=== PATIENT | male | born 1950 | race Caucasian/White ===

== ENCOUNTER 2020-02-23 23:26 | Inpatient (IN) | payer OTHER ==
[~2020-02-23] VITALS: Ht 182.9 cm; Wt 113.4 kg
--- NOTE | 2020-02-23 23:30 | NUR ---
ED Nurse Note: Patient brought in by ambulance from home d/t bilateral leg pain, per pt hx of cellulitis. Patient aao x 4 and nonambulatory d/t pain. Pain 09/03. Redness noted on bilateral legs. Patient placed on monitor technician. No acute distress noted. Addendum: 02/24/20 at 0118 by [facility] ED Nurse Note: Patient brought in by ambulance from home d/t bilateral leg pain, per pt hx of cellulitis. Patient aao x 4 and nonambulatory d/t pain, normally ambulatory with walker at home. Pain 09/03. Redness noted on bilateral legs. Patient placed on monitor technician. No acute distress noted.
[2020-02-23] MEDS ORDERED: Acetaminophen 500mg (ES) tab ORAL ONE (23:45)
[2020-02-23] MEDS ORDERED: HYDROmorphone 1mg/ml Carpuject IVP ONE (23:45)
[2020-02-23] MEDS ORDERED: Vancomycin 1.5 GM in NS 275 ML IVPB ONE (23:45)
--- NOTE | 2020-02-23 23:49 | Emergency Room Report ---
History of Present Illness General Chief Complaint: Lower Extremity Injury Source: Patient Present Illness HPI 69-year-old male presents ED for evaluation of bilateral leg pain and swelling. Coming from home. States he has cellulitis in his legs. Pain started today. Febrile in triage. Denies cough. Denies congestion or shortness of breath. States he has had prior cellulitis episodes many times. Denies chest pain or shortness of breath. No other aggravating relieving factors. Denies any other associated symptoms Allergies: Coded Allergies: No Known Allergies (Unverified , 02/23/20) COVID-19 Screening Contact w/high risk pt: No Recent Travel to affected area: No Experienced COVID-19 symptoms?: No COVID-19 symptoms experienced: Fever (T>100.4F or >38C) Patient History Past Medical History: DM, HTN, COPD Past Surgical History: none Pertinent Family History: none Social History: Denies: smoking, alcohol use, drug use Immunizations: UTD Reviewed Nursing Documentation: PMH: Agreed; PSxH: Agreed Nursing Documentation-PMH Hx Cardiac Problems: Yes - PE; DVT; 3 STENTS Hx Hypertension: Yes Hx COPD: Yes Hx Diabetes: Yes Review of Systems All Other Systems: negative except mentioned in HPI Physical Exam Vital Signs Date Time Temp Pulse Resp B/P (MAP) Pulse Ox O2 Delivery O2 Flow Rate FiO2 02/23/20 23:24 102.4 102 20 144/85 (104) 98 Room Air Sp02 EP Interpretation: reviewed, normal General Appearance: no apparent distress, alert, GCS 15, non-toxic, obese Head: normocephalic, atraumatic Eyes: bilateral eye normal inspection, bilateral eye PERRL ENT: hearing grossly normal, normal pharynx, no angioedema, normal voice Neck: full range of motion, supple/symm/no masses Respiratory: chest non-tender, lungs clear, normal breath sounds, speaking full sentences Cardiovascular #1: regular rate, rhythm, no edema Cardiovascular #2: 2+ carotid (R), 2+ carotid (L), 2+ radial (R), 2+ radial (L) , 2+ dorsalis pedis (R), 2+ dorsalis pedis (L) Gastrointestinal: normal bowel sounds, non tender, soft, non-distended, no guarding, no rebound Rectal: deferred Genitourinary: normal inspection, no CVA tenderness Musculoskeletal: back normal, normal range of motion, gait/station normal, swelling - erythema/swelling bilateral LEs Neurologic: alert, motor strength/tone normal, oriented x3, sensory intact, responsive, speech normal Psychiatric: judgement/insight normal, memory normal, mood/affect normal, no suicidal/homicidal ideation Reflexes: 3+ bicep (R), 3+ bicep (L), 3+ tricep (R), 3+ tricep (L), 3+ knee (R) , 3+ knee (L) Skin: other - erythema/induration bilateral LEs Lymphatic: no adenopathy Medical Decision Making Diagnostic Impression: Primary Impression: Cellulitis of both lower extremities ER Course Hospital Course 69-year-old male presents to ED with redness, pain to lower extremities. fever Differential diagnoses include: Cellulitis, DVT, abscess, rash. Clinical course Patient placed on stretcher. After initial history and physical I ordered labs , blood Cx, UA, IVFs, CXR, pain meds, doppler US of LLE labs reviewed - minimal leukocytosis, Hb/Hct stable, no electrolyte abnormalities. lactic ok Doppler US - no evidence of DVT CXR - no focal consolidation patient has no cough. no SOB. given tylenol for fever. antibiotics given. Case discussed with Dr Mock and he agreed to accept the patient to his service for further care and support Diagnosis - cellulitis of both lower extremities Patient admitted to floor in serious condition Labs Test 02/23/20 23:48 White Blood Count 11.6 K/UL (4.8-10.8) Red Blood Count 4.75 M/UL (4.70-6.10) Hemoglobin 10.9 G/DL (14.2-18.0) Hematocrit 35.1 % (42.0-52.0) Mean Corpuscular Volume 74 FL (80-99) Mean Corpuscular Hemoglobin 22.9 PG (27.0-31.0) Mean Corpuscular Hemoglobin Concent 31.0 G/DL (32.0-36.0) Red Cell Distribution Width 14.9 % (11.6-14.8) Platelet Count 249 K/UL (150-450) Mean Platelet Volume 6.6 FL (6.5-10.1) Neutrophils (%) (Auto) % (45.0-75.0) Lymphocytes (%) (Auto) % (20.0-45.0) Monocytes (%) (Auto) % (1.0-10.0) Eosinophils (%) (Auto) % (0.0-3.0) Basophils (%) (Auto) % (0.0-2.0) Sodium Level 136 MMOL/L (136-145) Potassium Level 4.2 MMOL/L (3.5-5.1) Chloride Level 101 MMOL/L (98-107) Carbon Dioxide Level 27 MMOL/L (21-32) Anion Gap 8 mmol/L (5-15) Blood Urea Nitrogen 19 mg/dL (7-18) Creatinine 1.0 MG/DL (0.55-1.30) Estimat Glomerular Filtration Rate > 60 mL/min (>60) Glucose Level 151 MG/DL (74-106) Lactic Acid Level 1.70 mmol/L (0.4-2.0) Calcium Level 9.1 MG/DL (8.5-10.1) Total Bilirubin 0.3 MG/DL (0.2-1.0) Aspartate Amino Transf (AST/SGOT) 18 U/L (15-37) Alanine Aminotransferase (ALT/SGPT) 30 U/L (12-78) Alkaline Phosphatase 118 U/L (46-116) Total Protein 7.4 G/DL (6.4-8.2) Albumin 3.3 G/DL (3.4-5.0) Globulin 4.1 g/dL Albumin/Globulin Ratio 0.8 (1.0-2.7) Chest X-Ray Diagnostic Results Chest X-Ray Diagnostic Results : Chest X-Ray Ordered: Yes # of Views/Limited/Complete: 1 View Indication: Other EP Interpretation: Yes Interpretation: no consolidation, no effusion, no pneumothorax, no acute cardiopulmonary disease Impression: No acute disease Electronically Signed by: Electronically signed by Elian Momin MD CT/MRI/US Diagnostic Results CT/MRI/US Diagnostic Results : Imaging Test Ordered: Venous Duplex bilateral lower extremities Impression no evidence of DVT in lower extremities Last Vital Signs Date Time Temp Pulse Resp B/P (MAP) Pulse Ox O2 Delivery O2 Flow Rate FiO2 02/23/20 23:24 102.4 102 20 144/85 (104) 98 Room Air Status: improved Disposition: ADMITTED INPATIENT Condition: Serious Referrals: [facility],REFERRING (PCP) Elian Momin MD Feb 23, 2020 23:49
[2020-02-24 00:04] LABS: HEMATOCRIT 35.1 % (42.0-52.0); HEMOGLOBIN 10.9 G/DL (14.2-18.0); MEAN CORPUSCULAR VOLUME 74 FL (80-99); PLATELET COUNT 249 K/UL (150-450); RED BLOOD COUNT 4.75 M/UL (4.70-6.10); RED CELL DISTRIBUTION WIDTH 14.9 % (11.6-14.8); WHITE BLOOD COUNT 11.6 K/UL (4.8-10.8)
--- NOTE | 2020-02-24 00:11 | NUR ---
ED Nurse Note: Xray at bedside
[2020-02-24 00:16] LABS: ALANINE AMINOTRANSFERASE 30 U/L (12-78); ALBUMIN 3.3 G/DL (3.4-5.0); ALBUMIN/GLOBULIN RATIO 0.8 (1.0-2.7); ALKALINE PHOSPHATASE 118 U/L (46-116); ANION GAP 8 mmol/L (5-15); ASPARTATE AMINO TRANSFERASE 18 U/L (15-37); BILIRUBIN,TOTAL 0.3 MG/DL (0.2-1.0); BLOOD UREA NITROGEN 19 mg/dL (7-18); CALCIUM 9.1 MG/DL (8.5-10.1); CARBON DIOXIDE 27 MMOL/L (21-32); CHLORIDE 101 MMOL/L (98-107); POTASSIUM 4.2 MMOL/L (3.5-5.1); SODIUM 136 MMOL/L (136-145)
--- NOTE | 2020-02-24 01:16 | NUR ---
ED Nurse Note: Provided patient with urinal, states unable to give urine sample at this time.
--- NOTE | 2020-02-24 01:24 | NUR ---
ED Nurse Note: Ultrasound at bedside.
[2020-02-24] MEDS ORDERED: LANTUS SOL100 UNIT/1 SUBQ (01:36)
[2020-02-24] MEDS ORDERED: METFORMIN HCL500 M1 ORAL (01:36)
[2020-02-24] MEDS ORDERED: VITAMIN C500 M1 ORAL (01:36)
[2020-02-24] MEDS ORDERED: BENAZEPRIL HCL10 MG ORAL (01:36)
[2020-02-24] MEDS ORDERED: XARELTO10 MG ORAL (01:36)
--- NOTE | 2020-02-24 02:12 | NUR ---
ED Nurse Note: Report given to MARTA Whittaker in med surg.
--- NOTE | 2020-02-24 02:16 | NUR ---
ED Nurse Note: Belongings list completed and signed. Patient unable to give urine sample.
--- NOTE | 2020-02-24 02:22 | NUR ---
TRANSFER TO FLOOR: Patient transferred to med surg as ordered, per ERMD. Report given to MARTA Whittaker. Patient transported via gurney in stable condition accompanied by technical sales manager in stable condition.
--- NOTE | 2020-02-24 02:42 | NUR ---
NURSE NOTES: Received patient in bed, admission from ED via gurney, patient is awake, alert, oriented x4, able to verbalize his needs, IV site is clean dry and intact, patient unable to stand on his feet due to pain and discomfort, oriented to the room, call light is within reach, be dis lowered, locked, alarm is on. Belongings list verified, items are accounted for. Will obtain admit orders from MD. Will continue to monitor for comfort and safety.
--- NOTE | 2020-02-24 03:09 | Diagnostic Imaging Report ---
Indication: Bilateral leg pain and swelling, history of cellulitis Technique: Grayscale and duplex images of the bilateral lower extremity veins Comparison: None Findings: Bilaterally, grayscale and duplex images demonstrate no evidence of intraluminal thrombus. Normal phasic Doppler waveforms, demonstrating normal augmentation response and no evidence of valvular insufficiency. Greater saphenous vein(s) and tibial veins are patent. Normal compressibility. Impression: Negative for evidence of lower extremity deep venous thrombosis bilaterally This agrees with the preliminary interpretation provided overnight by [facility] teleradiology service.
--- NOTE | 2020-02-24 03:13 | NUR ---
Called MD to obtain admit orders, left voice message.
[2020-02-24] MEDS ORDERED: HYDROmorphone 1mg/ml Carpuject IVP PRN ×2 (03:45→11:00)
[2020-02-24 04:00] VITALS: BP 124/64
[2020-02-24] MEDS: NovoLOG Insulin Flexpen SUBQ SCH ×4 (05:49→20:51)
[2020-02-24 06:43] LABS: BASOPHILS % (AUTO) 0.5 % (0.0-2.0); EOSINOPHILS % (AUTO) 0.1 % (0.0-3.0); HEMOGLOBIN 9.8 G/DL (14.2-18.0); MEAN CORPUSCULAR VOLUME 73 FL (80-99); MONOCYTES % (AUTO) 7.1 % (1.0-10.0); NEUTROPHILS % (AUTO) 84.4 % (45.0-75.0); PLATELET COUNT 225 K/UL (150-450); RED BLOOD COUNT 4.11 M/UL (4.70-6.10); WHITE BLOOD COUNT 11.4 K/UL (4.8-10.8)
[2020-02-24 07:01] LABS: ANION GAP 9 mmol/L (5-15); BLOOD UREA NITROGEN 17 mg/dL (7-18); CALCIUM 8.7 MG/DL (8.5-10.1); CARBON DIOXIDE 24 MMOL/L (21-32); CHLORIDE 103 MMOL/L (98-107); SODIUM 136 MMOL/L (136-145)
--- NOTE | 2020-02-24 07:45 | NUR ---
NURSE NOTES: Received patient on bed, awake. IV site intact and patent. Bed in low and locked position, call light in reach. No signs of rerspiratory distress or pain. patient states that he woke up with a cough that he did not have before. Will continue to monitor patient and temperature and notify MD. Room Board updated, will continue to monitor.
[2020-02-24 08:00] VITALS: BP 120/66
--- NOTE | 2020-02-24 08:55 | Diagnostic Imaging Report ---
Indication: Cough for 3 days Technique: One view of the chest Comparison: none Findings: The lungs and pleural spaces are clear. The heart size is upper limits of normal. Surgical hardware is seen in the right shoulder. Extensive degenerative changes of the left shoulder noted. There is final fusion hardware at the cervicothoracic junction. Numerous surgical clips are seen in the central and left lower neck. Impression: No acute process
[2020-02-24] MEDS: Ascorbic Acid 500mg tab ORAL SCH (09:07)
[2020-02-24] MEDS: Benazepril 10mg tab ORAL SCH (09:07)
[2020-02-24] MEDS: Xarelto 10mg tab ORAL SCH (09:07)
--- NOTE | 2020-02-24 10:10 | NUR ---
NURSE NOTES: Patient sat up in bed, did not ambulate.
[2020-02-24] MEDS ORDERED: Nitroglycerin Subl 0.4mg tab SL PRN (11:00)
[2020-02-24] MEDS ORDERED: Acetaminophen 500mg (ES) tab ORAL PRN (11:00)
[2020-02-24] MEDS ORDERED: Milk of Magnesia 30ml Ud ORAL PRN (11:00)
--- NOTE | 2020-02-24 11:04 | NUR ---
*-* INSURANCE *-* ALL AVAILABLE CLINICALS HAVE BEEN FAXED TO: Patricia CM: [place] #[phone]
[2020-02-24] MEDS: Vancomycin 1 GM in NS 275 ML IVPB SCH (11:41)
--- NOTE | 2020-02-24 12:05 | NUR ---
NURSE NOTES: Patient has fever 100.7. Left message for MD Mock, awaiting any new orders.
--- NOTE | 2020-02-24 12:06 | NUR ---
HAND-OFF: Report given to MARTA Lucas.
[2020-02-24 12:07] VITALS: BP 106/57
--- NOTE | 2020-02-24 12:15 | NUR ---
NURSE NOTES: Patient seen on rounds, AxOx4, calm, not in distress. PRN Dilaudid and Tylenol given by RN Jatin and will reassess pain and fever. PIV on left AC intact, with no signs of infiltration. Urine specimen collected and confirmed orders with lab. Bed is locked, siderails up x 3, call light within reach, advised to call nurse for assistance. Will continue to monitor.
[2020-02-24 12:56] LABS: APPEARANCE,URINE CLEAR; BILIRUBIN, URINE NEGATIVE (NEGATIVE); GLUCOSE, URINE (UA) NEGATIVE (NEGATIVE); KETONES,URINE NEGATIVE (NEGATIVE); LEUKOCYTE ESTERASE ,URINE 1+ (NEGATIVE); NITRITE,URINE NEGATIVE (NEGATIVE); PH,URINE 5 (4.5-8.0); PROTEIN,URINE 2+ (NEGATIVE); UROBILINOGEN,URINE 1 MG/DL (0.0-1.0)
[2020-02-24 12:57] LABS: COLOR,URINE YELLOW
--- NOTE | 2020-02-24 13:28 | NUR ---
CASE MANAGEMENT: INITIAL REVIEW 69YR OLD SHAUN SEYMOUR FROM HOME CC: BILATERAL LOWER EXTREMITY PAIN WITH SWELLING AND REDNESS SI: CELLULITIS . UTI 102.4 102 20 144/85 98% ON RA WBC 11.6 H/H 10.9/35.1 BUN 19 BG 151 [id number] IS:IV VANCOMYCIN X1 IVF NS BOLUS X1 IV DILAUDID X1 TYLENOL PO X1 CHEST X-RAY- NO ACUTE PROCESS VENOUS DUPLEX- NEGATIVE \: 4E MED SURG UNIT DCP: HOME WHEN STABLE CASE MANAGEMENT: REVIEW 02/24/20 SI: CELLULITIS . UTI 100.7 79 19 106/57 94% ON RA WBC 11.4 H/H 9.8/30 BG 154 IS:IV VANCOMYCIN BID IV DILAUDID Q4HR/PRN TYLENOL PO Q4HR/PRN \: 4E MED SURG UNIT DCP: HOME WHEN STABLE PLAN: URINE CX-PENDING CONTROL FEVERS ID CONSULT FOR SEPSIS
--- NOTE | 2020-02-24 13:51 | History & Physical ---
History and Physical History & Physicial DICT # [id number] Simon Mock MD Feb 24, 2020 13:51
--- NOTE | 2020-02-24 15:52 | Consultation ---
Consult Note Consult Note HPI: 69yo gentleman with PMH below presents from home with leg pain. Pt reports with one day of bilateral feet pain radiating up his leg. Reports fever, chills. Pt is not sure if there is swelling or redness because he does not look at his feet. Denies trauma but states that he has neuropathy so can't really feel. No sore throat, congestion, cough, sob, chest pain, abdominal pain, nausea , diarrhea, dysuria. No recent travel. No sick contacts. ID consulted for cellulitis. Pt state that the vancomycin is helping and pain is much better. Pt reports history of cellulitis a year ago. ROS: per HPI PMH/PSH: DM, HTN, COPD FHX: noncontributory SHx: chari cig, etoh, drug use. lives with and son. Vs: reviewed PE: Gen: NAD. well nourished. well hydrated HEENT: anicteric sclera. MMM. no cervical LAD CV: RRR. S1+S2. no rubs or gallop Resp: RRR. no wheezes or crackles. Abd: normoactive BS+. Soft. no TTP. no rebound. Ext: b/l LE erythema. Minimal warmth. tinea pedis. Neuro: AAO. follows commands. answers questions appropraitely. Psych: calm. nonlabile. affect is mood congruent. Labs: reviewed Imaging: reviewed Assessment: Fever RA Leukocytosis Cellulitis US Duplex: Negative for evidence of lower extremity deep venous thrombosis bilaterally Asymptomatic bacteriuria UA positive r/o bacteremia Bcx: P 02/22 CXR: The lungs and pleural spaces are clear. DM HTN Plan: continue vancomycin #2/5 monitor temp and CBC f/u bcx f/u UCx f/u MRSA screen elevate legs Pt is anxious to go home. If pt remains fever free for 24hrs and erythema/pain continues to improve, can DC on keflex and bactrim. GUILHERME RN Thank you for this consult. [facility] will continue to follow the patient with you. Hernando Duron MD Feb 24, 2020 15:52
[2020-02-24 16:00] VITALS: BP 99/51
[2020-02-24] MEDS: Docusate 100mg cap ORAL SCH (17:08)
[2020-02-24] MEDS: Oxybutynin 5mg tab ORAL SCH (17:08)
--- NOTE | 2020-02-24 17:45 | History and Physical Report ---
DATE OF ADMISSION: 02/24/2020 CHIEF COMPLAINT: Bilateral lower extremity pain and swelling. HISTORY OF PRESENT ILLNESS: The patient is a 69-year-old male with a history of diabetes with chronic diabetic foot calluses and wounds, history of bilateral lower extremity DVT on anticoagulation, FERNANDO on CPAP, CAD status post PCI, obesity, diabetic neuropathy, major depressive disorder, prior TIA, and chronic urinary retention, and multiple other medical problems, who basically called Dr. Servando Miguel, his primary doctor yesterday with concern about low-grade fever and swelling and redness to his legs bilaterally, and he was told to come to the ER. He did come to the ER for evaluation. Since presenting here at [facility], his T-max has been 102.4 initially, but afebrile since. His vitals have been stable on room air. He had evidence of a leukocytosis, but his laboratory workup was otherwise unremarkable. Chest x-ray done in the emergency department was within normal limits, and a venous duplex was negative. He denies any cough, chest pain, wheezing, hemoptysis, nausea, vomiting, diarrhea, constipation, abdominal pain, or other complaints. PAST MEDICAL HISTORY: 1. Diabetes. 2. Diabetic neuropathy. 3. Obesity, status post bariatric surgery. 4. CAD, status post PCI. 5. PE and lower extremity DVT in 2017, on Xarelto. 6. Insulin dependence. 7. Chronic leg wounds. 8. Chronic lower extremity cellulitis. 9. Hyperlipidemia. 10. History of TIA. 11. Carotid artery disease. 12. Peripheral vascular disease. 13. Dysphagia. 14. History of colon polyps. 15. CKD. 16. BPH. 17. Iron deficiency anemia. 18. History of GBS sepsis in the past. 19. Depression. 20. Chronic neck and back pain. 21. Cognitive disorder. 22. Sleep apnea, on CPAP. 23. Chronic hilar adenopathy. 24. Old granulomatous disease. ALLERGIES: No known drug allergies. MEDICATIONS: Prior to admission medications, reviewed. Current medications, reviewed. SOCIAL HISTORY: He denies tobacco, alcohol, or drug use. FAMILY HISTORY: Noncontributory. REVIEW OF SYSTEMS: Negative other than history of present illness. PHYSICAL EXAMINATION: VITAL SIGNS: T-max 102.4, heart rate 79, blood pressure 120/66, respiratory rate 18, and saturating 95% on room air. GENERAL: He is a well-developed and well-nourished male, in no acute distress. Awake, alert, and oriented x3. HEENT: Normocephalic and atraumatic. Oropharynx is clear with moist mucous membranes. NECK: Supple without lymphadenopathy or JVD. CHEST: Clear. HEART: Regular. ABDOMEN: Benign. EXTREMITIES: 1+ bilateral lower extremity edema with warmth and erythema. No open wounds. ANCILLARY DATA: Labs reviewed. Imaging - chest x-ray, no acute findings. Duplex is negative for DVT. ASSESSMENT: The patient is an obese 69-year-old male with a history of FERNANDO on CPAP, diabetes, insulin dependent, diabetic neuropathy, chronic lower extremity wounds and cellulitis, FERNANDO on CPAP, prior transient ischemic attack, hypertension, hyperlipidemia, and CAD, status post PCI, presenting with recurrent lower extremity cellulitis. PROBLEM LIST: 1. Recurrent lower extremity cellulitis. 2. History of diabetic neuropathy. 3. Chronic lower extremity wounds. 4. History of GBS sepsis in the past. 5. Insulin dependent diabetes. 6. CAD, status post PCI. 7. FERNANDO, on CPAP. 8. Hypertension. 9. Hyperlipidemia. 10. History of TIA in the past. 11. Cognitive impairment. 12. Anemia. 13. CKD. 14. Protein-calorie malnutrition. TREATMENT PLAN: 1. Admit to hospital. 2. Continue IV vancomycin. 3. Infectious Disease consultation. 4. Continue home medications including dual anti-platelet therapy. 5. Pain control/supportive care. 6. We will continue CPAP. 7. Aspiration precautions. 8. DVT prophylaxis. The patient is on Xarelto. 9. The patient is a Full Code. Simon Mock M.D. DR: JANETTE JOB#: [id number] CC:
--- NOTE | 2020-02-24 19:26 | NUR ---
HAND-OFF: Report given to Remedios LOZANO.
--- NOTE | 2020-02-24 19:33 | NUR ---
NURSE NOTES: Received patient in bed, awake, alert, oriented x4, sitting at the edge of the bed, no acute distress noted, IV site is clean dry and intact. Patient is able to make his needs known, call light is within reach, bed is lowered, locked, alarm is locked, will continue to monitor for comfort and safety.
[2020-02-24 20:00] VITALS: BP 96/66
[2020-02-24] MEDS: Atorvastatin 20mg tab ORAL SCH (20:48)
[2020-02-24] MEDS: oxyCODONE 5mg IR tab ORAL PRN (22:05)
[2020-02-25] VITALS: BP 107/68
[2020-02-25] MEDS: Vancomycin 1 GM in NS 275 ML IVPB SCH ×3 (00:13→23:32)
[2020-02-25 04:00] VITALS: BP 113/64
[2020-02-25] MEDS: NovoLOG Insulin Flexpen SUBQ SCH ×4 (05:24→20:48)
[2020-02-25 08:00] VITALS: BP 133/65
--- NOTE | 2020-02-25 08:05 | NUR ---
NURSE NOTES: pt is in the bed sleeping comfortably. respiration is even and unlabored. no acute distress noted at this time. call light is within reach, will continue to follow plan of care.
[2020-02-25] MEDS: Aspirin EC 81mg tab ORAL SCH (09:09)
[2020-02-25] MEDS: Xarelto 10mg tab ORAL SCH (09:09)
[2020-02-25] MEDS: BuPROPion SR 150mg tab ORAL SCH (09:09)
[2020-02-25] MEDS: Oxybutynin 5mg tab ORAL SCH ×2 (09:15→17:12)
[2020-02-25] MEDS: Benazepril 10mg tab ORAL SCH (09:15)
[2020-02-25] MEDS: Docusate 100mg cap ORAL SCH ×2 (09:15→17:12)
[2020-02-25] MEDS: Ascorbic Acid 500mg tab ORAL SCH (09:15)
--- NOTE | 2020-02-25 11:38 | NUR ---
*-* INSURANCE *-* ALL AVAILABLE CLINICALS HAVE BEEN FAXED TO: Patricia CM: [place] #[phone]
[2020-02-25 12:00] VITALS: BP 129/71
--- NOTE | 2020-02-25 15:10 | Pulmonology Progress Note ---
Assessment/Plan Problems: (1) Cellulitis of both lower extremities (2) Injury of lower extremity Assessment/Plan ASSESSMENT: The patient is an obese 69-year-old male with a history of FERNANDO on CPAP, diabetes, insulin dependent, diabetic neuropathy, chronic lower extremity wounds and cellulitis, FERNANDO on CPAP, prior transient ischemic attack, hypertension, hyperlipidemia, and CAD, status post PCI, presenting with recurrent lower extremity cellulitis. PROBLEM LIST: 1. Recurrent lower extremity cellulitis. 2. History of diabetic neuropathy. 3. Chronic lower extremity wounds. 4. History of GBS sepsis in the past. 5. Insulin dependent diabetes. 6. CAD, status post PCI. 7. FERNANDO, on CPAP. 8. Hypertension. 9. Hyperlipidemia. 10. History of TIA in the past. 11. Cognitive impairment. 12. Anemia. 13. CKD. 14. Protein-calorie malnutrition. TREATMENT PLAN: 1. Continue IV Vanco per ID ---> If remains afebrile will D/C in am on Keflex/ TMP-[id number] 2. Continue home medications including dual anti-platelet therapy 3. OOB, elevate LE's 4. Pain control/supportive care. 5. Continue CPAP. 6. Aspiration precautions. 7. DVT prophylaxis. The patient is on Xarelto. 8. The patient is a Full Code. Subjective Allergies: Coded Allergies: No Known Allergies (Unverified , 02/23/20) Subjective AFVSS on RA less pain less erythema less warmth no FC OOB Objective Last 24 Hour Vital Signs Date Time Temp Pulse Resp B/P (MAP) Pulse Ox O2 Delivery O2 Flow Rate FiO2 02/25/20 12:00 98.3 72 18 129/71 (90) 97 02/25/20 09:15 133/65 02/25/20 09:00 Room Air 02/25/20 08:00 98.3 70 18 133/65 (87) 96 02/25/20 04:00 98.4 70 18 113/64 (80) 96 02/25/20 00:00 98.6 64 18 107/68 (81) 98 02/24/20 21:30 Room Air 02/24/20 20:00 98.4 66 18 96/66 (76) 97 02/24/20 16:00 97.7 67 18 99/51 (67) 93 Intake and Output 02/24/20 02/25/20 19:00 07:00 Intake Total 840 ml 720 ml Output Total 1700 ml Balance 840 ml -980 ml Intake Oral 840 ml 720 ml Output Urine Total 1700 ml # Voids 4 General Appearance: WD/WN, no acute distress HEENT: normocephalic, atraumatic, anicteric, mucous membranes moist Respiratory/Chest: chest wall non-tender, lungs clear, normal breath sounds, no respiratory distress, no accessory muscle use Cardiovascular: normal peripheral pulses, normal rate, regular rhythm Abdomen: normal bowel sounds, soft, non tender, no organomegaly, non distended , no mass Extremities: no cyanosis, no clubbing, other - less pain less erythema less warmth Microbiology Date/Time Source Procedure Growth Status 02/23/20 23:48 Blood Blood Culture - Preliminary NO GROWTH AFTER 24 HOURS Resulted 02/23/20 23:33 Blood Blood Culture - Preliminary NO GROWTH AFTER 24 HOURS Resulted 02/23/20 12:50 Urine,Clean Catch Urine Culture - Preliminary NO GROWTH Resulted Laboratory Tests 02/25/20 10:55: Vancomycin Level Trough 11.0 Current Medications Medications (Trade) Dose Ordered Sig/Evelyn Route PRN Reason Start Time Stop Time Status Last Admin Dose Admin Acetaminophen (Tylenol) 500 mg Q4H PRN ORAL Mild Pain/Temp > 100.5 02/24/20 11:00 03/25/20 10:59 02/24/20 11:43 Ascorbic Acid (Vitamin C) 500 mg DAILY ORAL 02/24/20 09:00 03/25/20 08:59 02/25/20 09:15 Aspirin (Ecotrin) 81 mg DAILY ORAL 02/25/20 09:00 04/10/20 08:59 02/25/20 09:09 Atorvastatin Calcium (Lipitor) 40 mg BEDTIME ORAL 02/24/20 21:00 05/24/20 20:59 02/24/20 20:48 Benazepril HCl (Lotensin) 10 mg DAILY ORAL 02/24/20 09:00 03/25/20 08:59 02/25/20 09:15 Bupropion HCl (Wellbutrin SR) 150 mg DAILY ORAL 02/25/20 09:00 03/26/20 08:59 02/25/20 09:09 Dextrose (Dextrose 50%) 25 ml Q30M PRN IV Hypoglycemia 02/24/20 04:00 05/24/20 03:59 Dextrose (Dextrose 50%) 50 ml Q30M PRN IV Hypoglycemia 02/24/20 04:00 05/24/20 03:59 Docusate Sodium (Colace) 100 mg TWICE A DAY ORAL 02/24/20 18:00 03/25/20 17:59 02/25/20 09:15 Fluoxetine HCl (PROzac) 40 mg DAILY ORAL 02/25/20 09:00 03/26/20 08:59 02/25/20 09:09 Hydromorphone HCl (Dilaudid) 1 mg Q4H PRN IVP Severe Pain (Pain Scale 7-10) 02/24/20 11:00 03/02/20 10:59 02/24/20 11:40 Insulin Aspart (NovoLOG) BEFORE MEALS AND HS SUBQ 02/24/20 06:30 05/24/20 06:29 02/25/20 12:31 Magnesium Hydroxide (Mom) 30 ml DAILYPRN PRN ORAL Constipation 02/24/20 11:00 03/25/20 10:59 Nitroglycerin (Ntg) 0.4 mg Q5M PRN SL Prn Chest Pain 02/24/20 11:00 03/25/20 10:59 Oxybutynin Chloride (Ditropan) 5 mg BID ORAL 02/24/20 18:00 03/25/20 17:59 02/25/20 09:15 Oxycodone HCl (Roxicodone) 5 mg Q4H PRN ORAL Moderate Pain (Pain Scale 4-6) 02/24/20 11:00 03/02/20 10:59 02/24/20 22:05 Pantoprazole (Protonix) 40 mg DAILY ORAL 02/25/20 09:00 03/26/20 08:59 02/25/20 09:15 Rivaroxaban (Xarelto) 20 mg DAILY ORAL 02/24/20 09:00 05/24/20 08:59 02/25/20 09:09 Vancomycin HCl (Vanco rx to dose) 1 ea DAILY PRN MISC Per rx protocol 02/24/20 04:00 03/25/20 03:59 Vancomycin HCl 1 gm/Sodium Chloride 275 ml @ 183.708 mls/hr Q12H IVPB 02/24/20 12:00 02/29/20 11:59 02/25/20 13:34 Simon Mock MD Feb 25, 2020 15:10
[2020-02-25 16:00] VITALS: BP 143/66
--- NOTE | 2020-02-25 16:52 | NUR ---
CASE MANAGEMENT: REVIEW 02/25/20 SI: CELLULITIS . UTI 98.3 72 18 129/71 97% ON RA IS:IV VANCOMYCIN BID DITROPAN PO BID LOTENSIN PO QD LIPITOR PO QHS PROTONIX PO QD XARELTO PO QD IV DILAUDID Q4HR/PRN TYLENOL PO Q4HR/PRN NOVOLOG SQ AC&HS ASPIRIN PO QD \: 4E MED SURG UNIT DCP: HOME WHEN STABLE PLAN: URINE CX-PENDING CONTROL FEVERS ID CONSULT FOR SEPSIS CONTROL FEVERS MONITOR LAB VALUES DECREASE OXYGEN
[2020-02-25] MEDS: TERBINAFINE 1% TOPIC SCH (17:12)
--- NOTE | 2020-02-25 18:15 | Infectious Diseases Prog Note ---
Assessment/Plan Assessment/Plan Fever RA Leukocytosis Cellulitis US Duplex: Negative for evidence of lower extremity deep venous thrombosis bilaterally Asymptomatic bacteriuria UA positive r/o bacteremia Bcx: P 02/22 CXR: The lungs and pleural spaces are clear. DM HTN Plan: continue vancomycin #3/5 Terbinafine #1 monitor temp and CBC f/u bcx f/u UCx f/u MRSA screen elevate legs--reinforced with pt Pt is anxious to go home. If pt remains fever free for 24hrs and erythema/pain continues to improve, can DC on keflex and bactrim. at this time, erythema is slightly worse. GUILHERME RN Thank you for this consult. [facility] will continue to follow the patient with you. Subjective Allergies: Coded Allergies: No Known Allergies (Unverified , 02/23/20) Subjective Afebrile. Stable mild leukocytosis. pain is improved but now leg is redder Objective Vital Signs Last 24 Hour Vital Signs Date Time Temp Pulse Resp B/P (MAP) Pulse Ox O2 Delivery O2 Flow Rate FiO2 02/25/20 16:00 97.8 70 19 143/66 (91) 97 02/25/20 12:00 98.3 72 18 129/71 (90) 97 02/25/20 09:15 133/65 02/25/20 09:00 Room Air 02/25/20 08:00 98.3 70 18 133/65 (87) 96 02/25/20 04:00 98.4 70 18 113/64 (80) 96 02/25/20 00:00 98.6 64 18 107/68 (81) 98 02/24/20 21:30 Room Air 02/24/20 20:00 98.4 66 18 96/66 (76) 97 Height (Feet): 6 Height (Inches): 0.00 Weight (Pounds): 250 Objective Gen: NAD. well nourished. well hydrated CV: RRR. S1+S2. no rubs or gallop Resp: RRR. no wheezes or crackles. Ext: b/l LE erythema. Minimal warmth. tinea pedis. no ulcers Microbiology Date/Time Source Procedure Growth Status 02/23/20 23:48 Blood Blood Culture - Preliminary NO GROWTH AFTER 24 HOURS Resulted 02/23/20 23:33 Blood Blood Culture - Preliminary NO GROWTH AFTER 24 HOURS Resulted 02/23/20 12:50 Urine,Clean Catch Urine Culture - Preliminary NO GROWTH Resulted Laboratory Tests Test 02/25/20 10:55 Vancomycin Level Trough 11.0 ug/mL (5.0-12.0) Current Medications Medications (Trade) Dose Ordered Sig/Evelyn Route PRN Reason Start Time Stop Time Status Last Admin Dose Admin Acetaminophen (Tylenol) 500 mg Q4H PRN ORAL Mild Pain/Temp > 100.5 02/24/20 11:00 03/25/20 10:59 02/24/20 11:43 Ascorbic Acid (Vitamin C) 500 mg DAILY ORAL 02/24/20 09:00 03/25/20 08:59 02/25/20 09:15 Aspirin (Ecotrin) 81 mg DAILY ORAL 02/25/20 09:00 04/10/20 08:59 02/25/20 09:09 Atorvastatin Calcium (Lipitor) 40 mg BEDTIME ORAL 02/24/20 21:00 05/24/20 20:59 02/24/20 20:48 Benazepril HCl (Lotensin) 10 mg DAILY ORAL 02/24/20 09:00 03/25/20 08:59 02/25/20 09:15 Bupropion HCl (Wellbutrin SR) 150 mg DAILY ORAL 02/25/20 09:00 03/26/20 08:59 02/25/20 09:09 Dextrose (Dextrose 50%) 25 ml Q30M PRN IV Hypoglycemia 02/24/20 04:00 05/24/20 03:59 Dextrose (Dextrose 50%) 50 ml Q30M PRN IV Hypoglycemia 02/24/20 04:00 05/24/20 03:59 Docusate Sodium (Colace) 100 mg TWICE A DAY ORAL 02/24/20 18:00 03/25/20 17:59 02/25/20 17:12 Fluoxetine HCl (PROzac) 40 mg DAILY ORAL 02/25/20 09:00 03/26/20 08:59 02/25/20 09:09 Hydromorphone HCl (Dilaudid) 1 mg Q4H PRN IVP Severe Pain (Pain Scale 7-10) 02/24/20 11:00 03/02/20 10:59 02/24/20 11:40 Insulin Aspart (NovoLOG) BEFORE MEALS AND HS SUBQ 02/24/20 06:30 05/24/20 06:29 02/25/20 12:31 Magnesium Hydroxide (Mom) 30 ml DAILYPRN PRN ORAL Constipation 02/24/20 11:00 03/25/20 10:59 Nitroglycerin (Ntg) 0.4 mg Q5M PRN SL Prn Chest Pain 02/24/20 11:00 03/25/20 10:59 Oxybutynin Chloride (Ditropan) 5 mg BID ORAL 02/24/20 18:00 03/25/20 17:59 02/25/20 17:12 Oxycodone HCl (Roxicodone) 5 mg Q4H PRN ORAL Moderate Pain (Pain Scale 4-6) 02/24/20 11:00 03/02/20 10:59 02/24/20 22:05 Pantoprazole (Protonix) 40 mg DAILY ORAL 02/25/20 09:00 03/26/20 08:59 02/25/20 09:15 Rivaroxaban (Xarelto) 20 mg DAILY ORAL 02/24/20 09:00 05/24/20 08:59 02/25/20 09:09 Terbinafine HCl (LaMISIL 15gm) 1 applic BID TOPIC 02/25/20 18:00 05/25/20 17:59 02/25/20 17:12 Vancomycin HCl (Vanco rx to dose) 1 ea DAILY PRN MISC Per rx protocol 02/24/20 04:00 03/25/20 03:59 Vancomycin HCl 1 gm/Sodium Chloride 275 ml @ 183.708 mls/hr Q12H IVPB 02/24/20 12:00 02/29/20 11:59 02/25/20 13:34 Hernando Duron MD Feb 25, 2020 18:15
--- NOTE | 2020-02-25 19:28 | NUR ---
HAND-OFF: Report given to Robbi.
--- NOTE | 2020-02-25 19:30 | NUR ---
NURSE NOTES: Pt. received from MARTA Alford. Pt. AAOx4, on room air, breathing even and unlabored, no complaints of pain at this time. IV left AC 20g intact, saline locked. Instructed pt. to use call light for help and for ambulation with assist, pt. verbalized understanding and acknowledged. Bed is low and locked, side rails x2 up, bed alarm active, and call light is in reach. Will continue plan of care.
[2020-02-25 20:00] VITALS: BP 126/68
[2020-02-25] MEDS: Atorvastatin 20mg tab ORAL SCH (20:45)
[2020-02-25] MEDS: oxyCODONE 5mg IR tab ORAL PRN (23:33)
[2020-02-26] VITALS: BP 132/68
[2020-02-26 04:00] VITALS: BP 129/65
[2020-02-26] MEDS: oxyCODONE 5mg IR tab ORAL PRN ×2 (06:28→23:35)
[2020-02-26] MEDS: NovoLOG Insulin Flexpen SUBQ SCH ×4 (06:28→21:03)
--- NOTE | 2020-02-26 07:20 | NUR ---
HAND-OFF: Report given to MARTA Alford.
--- NOTE | 2020-02-26 07:21 | NUR ---
NURSE NOTES: pt is in the bed asleep. no SOB noted, o2 inplace. IV site on right hand intact, no acute distress noted at this time, placed call light within reach. side rails padded for seizure precaution. Addendum: 02/26/20 at 0725 by Prashanth Stuart RN NURSE NOTES: pt is the bed eating breakfast. no SOB noted. denies any pain and discomfort at this time. no acute distress noted. call light is within reach.
[2020-02-26 08:00] VITALS: BP 131/58
[2020-02-26] MEDS: TERBINAFINE 1% TOPIC SCH ×2 (08:35→18:30)
[2020-02-26] MEDS: Oxybutynin 5mg tab ORAL SCH ×2 (08:35→17:50)
[2020-02-26] MEDS: Xarelto 10mg tab ORAL SCH (08:35)
[2020-02-26] MEDS: Ascorbic Acid 500mg tab ORAL SCH (08:36)
[2020-02-26] MEDS: Aspirin EC 81mg tab ORAL SCH (08:36)
[2020-02-26] MEDS: Docusate 100mg cap ORAL SCH ×2 (08:36→17:59)
[2020-02-26] MEDS: BuPROPion SR 150mg tab ORAL SCH (08:36)
[2020-02-26] MEDS: Benazepril 10mg tab ORAL SCH (10:43)
--- NOTE | 2020-02-26 11:16 | NUR ---
*-* INSURANCE *-* ALL AVAILABLE CLINICALS HAVE BEEN FAXED TO: Patricia CM: [place] #[phone]
[2020-02-26 12:00] VITALS: BP 130/68
[2020-02-26] MEDS: Vancomycin 1 GM in NS 275 ML IVPB SCH ×2 (12:03→23:36)
--- NOTE | 2020-02-26 13:06 | Pulmonology Progress Note ---
Assessment/Plan Problems: (1) Cellulitis of both lower extremities (2) Injury of lower extremity Assessment/Plan ASSESSMENT: The patient is an obese 69-year-old male with a history of FERNANDO on CPAP, diabetes, insulin dependent, diabetic neuropathy, chronic lower extremity wounds and cellulitis, FERNANDO on CPAP, prior transient ischemic attack, hypertension, hyperlipidemia, and CAD, status post PCI, presenting with recurrent lower extremity cellulitis. PROBLEM LIST: 1. Recurrent lower extremity cellulitis. 2. History of diabetic neuropathy. 3. Chronic lower extremity wounds. 4. History of GBS sepsis in the past. 5. Insulin dependent diabetes. 6. CAD, status post PCI. 7. FERNANDO, on CPAP. 8. Hypertension. 9. Hyperlipidemia. 10. History of TIA in the past. 11. Cognitive impairment. 12. Anemia. 13. CKD. 14. Protein-calorie malnutrition. TREATMENT PLAN: 1. Continue IV Vanco per ID ---> Will D/C on Keflex/TMP-SMX per ID recs 2. Continue home medications including dual anti-platelet therapy 3. OOB, elevate LE's 4. Pain control/supportive care. 5. Continue CPAP. 6. Aspiration precautions. 7. DVT prophylaxis. The patient is on Xarelto. 8. The patient is a Full Code. Subjective Allergies: Coded Allergies: No Known Allergies (Unverified , 02/23/20) Subjective AFVSS on RA less pain less erythema less warmth no FC OOB Objective Last 24 Hour Vital Signs Date Time Temp Pulse Resp B/P (MAP) Pulse Ox O2 Delivery O2 Flow Rate FiO2 02/26/20 10:43 131/58 02/26/20 09:00 Room Air 02/26/20 08:00 98.1 69 17 131/58 (82) 96 02/26/20 04:00 98.1 86 18 129/65 (86) 96 02/26/20 00:00 98.2 61 18 132/68 (89) 96 02/25/20 21:00 Room Air 02/25/20 20:00 98.1 64 18 126/68 (87) 95 02/25/20 16:00 97.8 70 19 143/66 (91) 97 Intake and Output 02/25/20 02/26/20 19:00 07:00 Intake Total 1240 ml 1485.000 ml Output Total 2400 ml 1900 ml Balance -1160 ml -415.000 ml Intake Oral 1240 ml 1210 ml IV Total 275.000 ml Output Urine Total 2400 ml 1900 ml # Voids 2 4 General Appearance: WD/WN, no acute distress HEENT: normocephalic, atraumatic, anicteric, mucous membranes moist Respiratory/Chest: chest wall non-tender, lungs clear, normal breath sounds, no respiratory distress, no accessory muscle use Cardiovascular: normal peripheral pulses, normal rate, regular rhythm Abdomen: normal bowel sounds, soft, non tender, no organomegaly, non distended , no mass Extremities: no cyanosis, no clubbing, other - Dec b erythem and warmth dec edema Microbiology Date/Time Source Procedure Growth Status 02/23/20 23:48 Blood Blood Culture - Preliminary NO GROWTH AFTER 48 HOURS Resulted 02/23/20 23:33 Blood Blood Culture - Preliminary NO GROWTH AFTER 48 HOURS Resulted 02/24/20 02:21 Nasal Nares MRSA Culture - Final NO METHICILLIN RESISTANT STAPH AUREUS... Complete Current Medications Medications (Trade) Dose Ordered Sig/Evelyn Route PRN Reason Start Time Stop Time Status Last Admin Dose Admin Acetaminophen (Tylenol) 500 mg Q4H PRN ORAL Mild Pain/Temp > 100.5 02/24/20 11:00 03/25/20 10:59 02/24/20 11:43 Ascorbic Acid (Vitamin C) 500 mg DAILY ORAL 02/24/20 09:00 03/25/20 08:59 02/26/20 08:36 Aspirin (Ecotrin) 81 mg DAILY ORAL 02/25/20 09:00 04/10/20 08:59 02/26/20 08:36 Atorvastatin Calcium (Lipitor) 40 mg BEDTIME ORAL 02/24/20 21:00 05/24/20 20:59 02/25/20 20:45 Benazepril HCl (Lotensin) 10 mg DAILY ORAL 02/24/20 09:00 03/25/20 08:59 02/26/20 10:43 Bupropion HCl (Wellbutrin SR) 150 mg DAILY ORAL 02/25/20 09:00 03/26/20 08:59 02/26/20 08:36 Dextrose (Dextrose 50%) 25 ml Q30M PRN IV Hypoglycemia 02/24/20 04:00 05/24/20 03:59 Dextrose (Dextrose 50%) 50 ml Q30M PRN IV Hypoglycemia 02/24/20 04:00 05/24/20 03:59 Docusate Sodium (Colace) 100 mg TWICE A DAY ORAL 02/24/20 18:00 03/25/20 17:59 02/26/20 08:36 Fluoxetine HCl (PROzac) 40 mg DAILY ORAL 02/25/20 09:00 03/26/20 08:59 02/26/20 08:36 Hydromorphone HCl (Dilaudid) 1 mg Q4H PRN IVP Severe Pain (Pain Scale 7-10) 02/24/20 11:00 03/02/20 10:59 02/24/20 11:40 Insulin Aspart (NovoLOG) BEFORE MEALS AND HS SUBQ 02/24/20 06:30 05/24/20 06:29 02/26/20 12:03 Magnesium Hydroxide (Mom) 30 ml DAILYPRN PRN ORAL Constipation 02/24/20 11:00 03/25/20 10:59 Nitroglycerin (Ntg) 0.4 mg Q5M PRN SL Prn Chest Pain 02/24/20 11:00 03/25/20 10:59 Oxybutynin Chloride (Ditropan) 5 mg BID ORAL 02/24/20 18:00 03/25/20 17:59 02/26/20 08:35 Oxycodone HCl (Roxicodone) 5 mg Q4H PRN ORAL Moderate Pain (Pain Scale 4-6) 02/24/20 11:00 03/02/20 10:59 02/26/20 06:28 Pantoprazole (Protonix) 40 mg DAILY ORAL 02/25/20 09:00 03/26/20 08:59 02/26/20 08:36 Rivaroxaban (Xarelto) 20 mg DAILY ORAL 02/24/20 09:00 05/24/20 08:59 02/26/20 08:35 Terbinafine HCl (LaMISIL 15gm) 1 applic BID TOPIC 02/25/20 18:00 05/25/20 17:59 02/26/20 08:35 Vancomycin HCl (Vanco rx to dose) 1 ea DAILY PRN MISC Per rx protocol 02/24/20 04:00 03/25/20 03:59 Vancomycin HCl 1 gm/Sodium Chloride 275 ml @ 183.708 mls/hr Q12H IVPB 02/24/20 12:00 02/29/20 11:59 02/26/20 12:03 Simon Mock MD Feb 26, 2020 13:06
--- NOTE | 2020-02-26 14:03 | NUR ---
CASE MANAGEMENT:REVIEW SI;BLE CELLULITIS. BACTERIURIA. 98.2 86 19 132/68 96% ON RA NO LABS AVAILABLE IS;VANCOMYCIN IV Q12 HRS DILAUDID IV Q4 HRS PRN ASA PO QD MED SURG STATUS DCP;FROM HOME PLAN;CONTINUE VANCOMYCIN DAY #3/5 DC HOME WHEN AFEBRILE FOR 24 HRS
[2020-02-26 16:00] VITALS: BP 128/67
--- NOTE | 2020-02-26 18:26 | Infectious Diseases Prog Note ---
Assessment/Plan Assessment/Plan Fever, SP RA Leukocytosis Cellulitis US Duplex: Negative for evidence of lower extremity deep venous thrombosis bilaterally Asymptomatic bacteriuria UA positive r/o bacteremia Bcx: P 02/22 CXR: The lungs and pleural spaces are clear. DM HTN Plan: continue vancomycin #03/01 and Terbinafine topical to feet #2/ since MRSA screen negative, can dc on keflex until 03/01/2020 and terbinafine cream monitor temp and CBC f/u bcx f/u UCx f/u MRSA screen elevate legs--reinforced with pt DW RN Thank you for this consult. [facility] will continue to follow the patient with you. Subjective Allergies: Coded Allergies: No Known Allergies (Unverified , 02/23/20) Subjective Afebrile. Leg erythema improved. pain improved. Objective Vital Signs Last 24 Hour Vital Signs Date Time Temp Pulse Resp B/P (MAP) Pulse Ox O2 Delivery O2 Flow Rate FiO2 02/26/20 16:00 97.7 69 18 128/67 (87) 98 02/26/20 12:00 98.0 63 19 130/68 (88) 97 02/26/20 10:43 131/58 02/26/20 09:00 Room Air 02/26/20 08:00 98.1 69 17 131/58 (82) 96 02/26/20 04:00 98.1 86 18 129/65 (86) 96 02/26/20 00:00 98.2 61 18 132/68 (89) 96 02/25/20 21:00 Room Air 02/25/20 20:00 98.1 64 18 126/68 (87) 95 Height (Feet): 6 Height (Inches): 0.00 Weight (Pounds): 250 Objective Gen: NAD. well nourished. well hydrated CV: RRR. S1+S2. no rubs or gallop Resp: RRR. no wheezes or crackles. Ext: L erythema resolved. R erythema improved. Minimal warmth. tinea pedis. no ulcers Microbiology Date/Time Source Procedure Growth Status 02/23/20 23:48 Blood Blood Culture - Preliminary NO GROWTH AFTER 48 HOURS Resulted 02/23/20 23:33 Blood Blood Culture - Preliminary NO GROWTH AFTER 48 HOURS Resulted 02/24/20 02:21 Nasal Nares MRSA Culture - Final NO METHICILLIN RESISTANT STAPH AUREUS... Complete Current Medications Medications (Trade) Dose Ordered Sig/Evelyn Route PRN Reason Start Time Stop Time Status Last Admin Dose Admin Acetaminophen (Tylenol) 500 mg Q4H PRN ORAL Mild Pain/Temp > 100.5 02/24/20 11:00 03/25/20 10:59 02/24/20 11:43 Ascorbic Acid (Vitamin C) 500 mg DAILY ORAL 02/24/20 09:00 03/25/20 08:59 02/26/20 08:36 Aspirin (Ecotrin) 81 mg DAILY ORAL 02/25/20 09:00 04/10/20 08:59 02/26/20 08:36 Atorvastatin Calcium (Lipitor) 40 mg BEDTIME ORAL 02/24/20 21:00 05/24/20 20:59 02/25/20 20:45 Benazepril HCl (Lotensin) 10 mg DAILY ORAL 02/24/20 09:00 03/25/20 08:59 02/26/20 10:43 Bupropion HCl (Wellbutrin SR) 150 mg DAILY ORAL 02/25/20 09:00 03/26/20 08:59 02/26/20 08:36 Dextrose (Dextrose 50%) 25 ml Q30M PRN IV Hypoglycemia 02/24/20 04:00 05/24/20 03:59 Dextrose (Dextrose 50%) 50 ml Q30M PRN IV Hypoglycemia 02/24/20 04:00 05/24/20 03:59 Docusate Sodium (Colace) 100 mg TWICE A DAY ORAL 02/24/20 18:00 03/25/20 17:59 02/26/20 17:59 Fluoxetine HCl (PROzac) 40 mg DAILY ORAL 02/25/20 09:00 03/26/20 08:59 02/26/20 08:36 Hydromorphone HCl (Dilaudid) 1 mg Q4H PRN IVP Severe Pain (Pain Scale 7-10) 02/24/20 11:00 03/02/20 10:59 02/24/20 11:40 Insulin Aspart (NovoLOG) BEFORE MEALS AND HS SUBQ 02/24/20 06:30 05/24/20 06:29 02/26/20 16:56 Magnesium Hydroxide (Mom) 30 ml DAILYPRN PRN ORAL Constipation 02/24/20 11:00 03/25/20 10:59 Nitroglycerin (Ntg) 0.4 mg Q5M PRN SL Prn Chest Pain 02/24/20 11:00 03/25/20 10:59 Oxybutynin Chloride (Ditropan) 5 mg BID ORAL 02/24/20 18:00 03/25/20 17:59 02/26/20 17:50 Oxycodone HCl (Roxicodone) 5 mg Q4H PRN ORAL Moderate Pain (Pain Scale 4-6) 02/24/20 11:00 03/02/20 10:59 02/26/20 06:28 Pantoprazole (Protonix) 40 mg DAILY ORAL 02/25/20 09:00 03/26/20 08:59 02/26/20 08:36 Rivaroxaban (Xarelto) 20 mg DAILY ORAL 02/24/20 09:00 05/24/20 08:59 02/26/20 08:35 Terbinafine HCl (LaMISIL 15gm) 1 applic BID TOPIC 02/25/20 18:00 05/25/20 17:59 02/26/20 08:35 Vancomycin HCl (Vanco rx to dose) 1 ea DAILY PRN MISC Per rx protocol 02/24/20 04:00 03/25/20 03:59 Vancomycin HCl 1 gm/Sodium Chloride 275 ml @ 183.708 mls/hr Q12H IVPB 02/24/20 12:00 02/29/20 11:59 02/26/20 12:03 Hernando Duron MD Feb 26, 2020 18:26
--- NOTE | 2020-02-26 19:12 | NUR ---
HAND-OFF: Report given to Robbi.
--- NOTE | 2020-02-26 19:15 | NUR ---
NURSE NOTES: Pt. received from MARTA Alford. Pt. AAOx4, on room air, no indications of shortness of breath and no complaints of pain. IV left AC 20g intact and patent, saline locked. Bed is low and locked, side rails x2 up, and call light is in reach. Instructed pt. to use call light for assistance, pt. verbalized understanding. Will continue to monitor.
[2020-02-26 20:00] VITALS: BP 120/57
[2020-02-26] MEDS: Atorvastatin 20mg tab ORAL SCH (21:02)
[2020-02-27] VITALS: BP 138/75
[2020-02-27 04:00] VITALS: BP 146/68
[2020-02-27] MEDS: NovoLOG Insulin Flexpen SUBQ SCH ×2 (06:12→12:35)
--- NOTE | 2020-02-27 07:27 | NUR ---
HAND-OFF: Report given to MARTA Lees.
[2020-02-27 08:00] VITALS: BP 139/70
--- NOTE | 2020-02-27 08:01 | NUR ---
NURSE NOTES: Patient awake and alert,respirations unlabored.resting patient breakfast at bedside,patient state will eat later.Call light within reach.
[2020-02-27] MEDS: Docusate 100mg cap ORAL SCH (09:14)
[2020-02-27] MEDS: Aspirin EC 81mg tab ORAL SCH (09:16)
[2020-02-27] MEDS: Oxybutynin 5mg tab ORAL SCH (09:16)
[2020-02-27] MEDS: Benazepril 10mg tab ORAL SCH (09:17)
[2020-02-27] MEDS: Ascorbic Acid 500mg tab ORAL SCH (09:17)
[2020-02-27] MEDS: BuPROPion SR 150mg tab ORAL SCH (09:18)
[2020-02-27] MEDS: Xarelto 10mg tab ORAL SCH (09:18)
[2020-02-27] MEDS ORDERED: NS 500ML ONE (10:15)
[2020-02-27] MEDS: TERBINAFINE 1% TOPIC SCH (10:47)
--- NOTE | 2020-02-27 11:26 | Infectious Diseases Prog Note ---
Assessment/Plan Assessment/Plan Fever, SP RA Leukocytosis Cellulitis US Duplex: Negative for evidence of lower extremity deep venous thrombosis bilaterally Asymptomatic bacteriuria UA positive 02/22 CXR: The lungs and pleural spaces are clear. DM HTN Plan: continue vancomycin #03/31 and Terbinafine topical to feet #01/29 since MRSA screen negative, can dc on keflex until 03/01/2020 and terbinafine cream monitor temp and CBC f/u bcx f/u MRSA screen elevate legs--reinforced with pt DW RN Thank you for this consult. [facility] will continue to follow the patient with you. Subjective Allergies: Coded Allergies: No Known Allergies (Unverified , 02/23/20) Subjective comfortable Objective Vital Signs Last 24 Hour Vital Signs Date Time Temp Pulse Resp B/P (MAP) Pulse Ox O2 Delivery O2 Flow Rate FiO2 02/27/20 09:17 140/77 02/27/20 04:00 97.8 59 18 146/68 (94) 98 02/27/20 00:00 98.6 62 18 138/75 (96) 96 02/26/20 21:00 Room Air 02/26/20 20:00 97.8 71 18 120/57 (78) 97 02/26/20 16:00 97.7 69 18 128/67 (87) 98 02/26/20 12:00 98.0 63 19 130/68 (88) 97 Height (Feet): 6 Height (Inches): 0.00 Weight (Pounds): 250 HEENT: anicteric Respiratory/Chest: respiratory distress Cardiovascular: regularly irregular Abdomen: non distended Current Medications Medications (Trade) Dose Ordered Sig/Evelyn Route PRN Reason Start Time Stop Time Status Last Admin Dose Admin Acetaminophen (Tylenol) 500 mg Q4H PRN ORAL Mild Pain/Temp > 100.5 02/24/20 11:00 03/25/20 10:59 02/24/20 11:43 Ascorbic Acid (Vitamin C) 500 mg DAILY ORAL 02/24/20 09:00 03/25/20 08:59 02/27/20 09:17 Aspirin (Ecotrin) 81 mg DAILY ORAL 02/25/20 09:00 04/10/20 08:59 02/27/20 09:16 Atorvastatin Calcium (Lipitor) 40 mg BEDTIME ORAL 02/24/20 21:00 05/24/20 20:59 02/26/20 21:02 Benazepril HCl (Lotensin) 10 mg DAILY ORAL 02/24/20 09:00 03/25/20 08:59 02/27/20 09:17 Bupropion HCl (Wellbutrin SR) 150 mg DAILY ORAL 02/25/20 09:00 03/26/20 08:59 02/27/20 09:18 Dextrose (Dextrose 50%) 25 ml Q30M PRN IV Hypoglycemia 02/24/20 04:00 05/24/20 03:59 Dextrose (Dextrose 50%) 50 ml Q30M PRN IV Hypoglycemia 02/24/20 04:00 05/24/20 03:59 Docusate Sodium (Colace) 100 mg TWICE A DAY ORAL 02/24/20 18:00 03/25/20 17:59 02/27/20 09:14 Fluoxetine HCl (PROzac) 40 mg DAILY ORAL 02/25/20 09:00 03/26/20 08:59 02/27/20 09:17 Hydromorphone HCl (Dilaudid) 1 mg Q4H PRN IVP Severe Pain (Pain Scale 7-10) 02/24/20 11:00 03/02/20 10:59 02/24/20 11:40 Insulin Aspart (NovoLOG) BEFORE MEALS AND HS SUBQ 02/24/20 06:30 05/24/20 06:29 02/26/20 21:03 Magnesium Hydroxide (Mom) 30 ml DAILYPRN PRN ORAL Constipation 02/24/20 11:00 03/25/20 10:59 Nitroglycerin (Ntg) 0.4 mg Q5M PRN SL Prn Chest Pain 02/24/20 11:00 03/25/20 10:59 Oxybutynin Chloride (Ditropan) 5 mg BID ORAL 02/24/20 18:00 03/25/20 17:59 02/27/20 09:16 Oxycodone HCl (Roxicodone) 5 mg Q4H PRN ORAL Moderate Pain (Pain Scale 4-6) 02/24/20 11:00 03/02/20 10:59 02/26/20 23:35 Pantoprazole (Protonix) 40 mg DAILY ORAL 02/25/20 09:00 03/26/20 08:59 02/27/20 09:17 Rivaroxaban (Xarelto) 20 mg DAILY ORAL 02/24/20 09:00 05/24/20 08:59 02/27/20 09:18 Terbinafine HCl (LaMISIL 15gm) 1 applic BID TOPIC 02/25/20 18:00 05/25/20 17:59 02/27/20 10:47 Vancomycin HCl (Vanco rx to dose) 1 ea DAILY PRN MISC Per rx protocol 02/24/20 04:00 03/25/20 03:59 Vancomycin HCl 1 gm/Sodium Chloride 275 ml @ 183.708 mls/hr Q12H IVPB 02/24/20 12:00 02/29/20 11:59 02/26/20 23:36 Jean Gibbs MD Feb 27, 2020 11:26
[2020-02-27 12:18] VITALS: BP 139/66
[2020-02-27] MEDS: Vancomycin 1 GM in NS 275 ML IVPB SCH (12:38)
--- NOTE | 2020-02-27 15:15 | Discharge Summary ---
Discharge Summary Hospital Course Date of Admission Feb 24, 2020 Date of Discharge Feb 27, 2020 Admitting Diagnosis 1. Recurrent lower extremity cellulitis. 2. History of diabetic neuropathy. 3. Chronic lower extremity wounds. 4. History of GBS sepsis in the past. 5. Insulin dependent diabetes. 6. CAD, status post PCI. 7. FERNANDO, on CPAP. 8. Hypertension. 9. Hyperlipidemia. 10. History of TIA in the past. 11. Cognitive impairment. 12. Anemia. 13. CKD. 14. Protein-calorie malnutrition. Reason for Hospitalization: IV antibiotics and pain control HPI The patient is an obese 69-year-old male with a history of FERNANDO on CPAP, diabetes , insulin dependent, diabetic neuropathy, chronic lower extremity wounds and cellulitis, FERNANDO on CPAP, prior transient ischemic attack, hypertension, hyperlipidemia, and CAD, status post PCI, presenting with recurrent lower extremity cellulitis. Consultations Dony Duron MD (Infectious Disease) Procedures None Hospital Course The patient was admitted to the hospital, started on IV Abx, ID was consulted. The patient improved throughout the hospitalization. On the day of discharge he was AFVSS and without complaints (no FC, no CP, no SOB, no pain, no NV, no DC ). On exam he was WD, WN, NAD, AAOx3, NC/AT, OPC c MMM, Supple s LAD or JVD, CTA, RRR, S/NT/NT c NABS, no C/C, less erythema, less edema, no warmth Discharge Condition Upon Discharge: improving Discharge Vital Signs > 45 min spent on discharge Last Vital Signs Date Time Temp Pulse Resp B/P (MAP) Pulse Ox O2 Delivery O2 Flow Rate FiO2 02/27/20 12:18 97.3 62 18 139/66 (90) 99 02/27/20 09:00 Room Air Discharge Disposition Patient was discharged to home FOLLOW UP: Dr. Servando Miguel next week. Dr. Miguel notified via CS link Discharge Medications Medications (Trade) Dose Ordered Sig/Evelyn Route PRN Reason Start Time Stop Time Status Last Admin Dose Admin Acetaminophen (Tylenol) 500 mg Q4H PRN ORAL Mild Pain/Temp > 100.5 02/24/20 11:00 03/25/20 10:59 02/24/20 11:43 Ascorbic Acid (Vitamin C) 500 mg DAILY ORAL 02/24/20 09:00 03/25/20 08:59 02/27/20 09:17 Aspirin (Ecotrin) 81 mg DAILY ORAL 02/25/20 09:00 04/10/20 08:59 02/27/20 09:16 Atorvastatin Calcium (Lipitor) 40 mg BEDTIME ORAL 02/24/20 21:00 05/24/20 20:59 02/26/20 21:02 Benazepril HCl (Lotensin) 10 mg DAILY ORAL 02/24/20 09:00 03/25/20 08:59 02/27/20 09:17 Bupropion HCl (Wellbutrin SR) 150 mg DAILY ORAL 02/25/20 09:00 03/26/20 08:59 02/27/20 09:18 Keflex 500 mg QID x 5 days TMP-SMX SS BID x 5 days Docusate Sodium (Colace) 100 mg TWICE A DAY ORAL 02/24/20 18:00 03/25/20 17:59 02/27/20 09:14 Fluoxetine HCl (PROzac) 40 mg DAILY ORAL 02/25/20 09:00 03/26/20 08:59 02/27/20 09:17 Hydromorphone HCl (Dilaudid) 1 mg Q4H PRN IVP Severe Pain (Pain Scale 7-10) 02/24/20 11:00 03/02/20 10:59 02/24/20 11:40 Insulin Aspart (NovoLOG) BEFORE MEALS AND HS SUBQ 02/24/20 06:30 05/24/20 06:29 02/27/20 12:35 Magnesium Hydroxide (Mom) 30 ml DAILYPRN PRN ORAL Constipation 02/24/20 11:00 03/25/20 10:59 Nitroglycerin (Ntg) 0.4 mg Q5M PRN SL Prn Chest Pain 02/24/20 11:00 03/25/20 10:59 Oxybutynin Chloride (Ditropan) 5 mg BID ORAL 02/24/20 18:00 03/25/20 17:59 02/27/20 09:16 Oxycodone HCl (Roxicodone) 5 mg Q4H PRN ORAL Moderate Pain (Pain Scale 4-6) 02/24/20 11:00 03/02/20 10:59 02/26/20 23:35 Pantoprazole (Protonix) 40 mg DAILY ORAL 02/25/20 09:00 03/26/20 08:59 02/27/20 09:17 Rivaroxaban (Xarelto) 20 mg DAILY ORAL 02/24/20 09:00 05/24/20 08:59 02/27/20 09:18 Terbinafine HCl (LaMISIL 15gm) 1 applic BID TOPIC 02/25/20 18:00 05/25/20 17:59 02/27/20 10:47 Discharge Diagnoses: (1) Cellulitis of both lower extremities (2) Injury of lower extremity Simon Mock MD Feb 27, 2020 15:14
--- NOTE | 2020-02-27 16:35 | NUR ---
NURSE NOTES: Discharge at this time,discharge instructions given.IV removed and IV hospital name band removed.Patient has personal belongings.patient accompany down to private vehicle,patient son will take patient home.Patient prescription were previously called to Pharmacy,son to [facility] prescriptions as ordered.
--- NOTE | 2020-02-29 14:59 | NUR ---
*-* INSURANCE *-* ALL AVAILABLE CLINICALS HAVE BEEN FAXED TO: Patricia CM: [place] #[phone]
--- NOTE | 2020-03-01 15:17 | NUR ---
*-* INSURANCE *-* COMPLETE MEDICAL RECORDS HAVE BEEN RE-FAXED: Patricia CM: [place] #[phone]
== END 2020-02-27 16:46 | disposition home or self-care (01) | DRG 603 ==
LOC: EDBD 23:26 → EMR 23:44 → 4E 02-24 → EDBEDREQ 02-24 00:48
DX: L03.116 Cellulitis of left lower limb (principal); E46 Unspecified protein-calorie malnutrition; L03.115 Cellulitis of right lower limb; Z68.33 Body mass index [BMI] 33.0-33.9, adult; Z86.718 Personal history of other venous thrombosis and embolism; E11.40 Type 2 diabetes mellitus with diabetic neuropathy, unspecified; I25.10 Atherosclerotic heart disease of native coronary artery without angina pectoris; Z79.4 Long term (current) use of insulin; E78.5 Hyperlipidemia, unspecified; Z86.73 Personal history of transient ischemic attack (TIA), and cerebral infarction without residual deficits; E11.22 Type 2 diabetes mellitus with diabetic chronic kidney disease; N18.9 Chronic kidney disease, unspecified; N40.0 Benign prostatic hyperplasia without lower urinary tract symptoms; D50.9 Iron deficiency anemia, unspecified; G89.29 Other chronic pain; M54.2 Cervicalgia; M54.9 Dorsalgia, unspecified; G47.33 Obstructive sleep apnea (adult) (pediatric)
CPT/HCPCS: 36415; 71045; 80048; 80053; 80202; 81003; 83605; 85025; 87040; 87081; 87086; 93970; 96365; 96366; 96375; 99285; J1815; J2405; J7030